=== PATIENT | female | born 1970 | race American Indian/Alaskan Native ===

== ENCOUNTER 2021-08-15 14:20 | Emergency (ER) | payer MEDICARE ==
[2021-08-15 15:15] VITALS: BP 104/61
[2021-08-15] MEDS ORDERED: DEXTROSE 10% *Hypoglycemia IV PRN (17:15)
[2021-08-15] MEDS ORDERED: SODIUM CHLORIDE 0.9% 500 ML 500 ML IV ONE (17:15)
--- NOTE | 2021-08-15 17:16 | Emergency Department Report ---
ED Syncope HPI - General Chief Complaint: Syncope Stated Complaint: Syncope Time Seen by Provider: 08/15/21 17:00 Source: patient Exam Limitations: no limitations - History of Present Illness Initial Comments: The patient is a pleasant and cooperative 51-year-old female who is currently visiting from [place]. The patient reports a history of coronary artery disease, with 2 drug-eluting stents, diabetes, hypertension, and currently takes Risperdal, prazosin, amitriptyline, Effient, metoprolol, metformin, Lipitor, and insulin. Patient states that the last time this happened to her, she had to be hospitalized in [place], and record coronary angiography and "a balloon in my heart." The patient also states that she believes that her blood sugars dropped on her, secondary to not eating this morning. The patient reports that she was in her usual state of health, not having any physical pain, when she was reaching for the door, and lost consciousness. She does not think that she hit her head. The patient denies physical pain, and reports that she ate after the event. She does not take glipizide, glimepiride, or sulfonylureas. She currently denies headache, neck pain, chest pain, abdominal pain, shortness of breath, hematemesis, bright red blood per rectum, reports having had only a 2-hour airplane trip from [place]. She states that she feels like she is in her usual state of health at this time, and denies new onset medications. She occasionally smokes cigarettes, but denies hard drugs. Timing/Prior Episodes: single episode today Precipitating Factors: Positive: other (Possibly not needed) Context: other (Standing and reaching for the door) Loss of Consciousness: no loss of consciousness Current Symptoms: back to normal - Related Data Allergies/Adverse Reactions: Allergies No Known Allergies Allergy (Verified 08/15/21 15:10) ED Review of Systems ROS: Stated complaint: LOW BLOOD SUGAR Other details as noted in HPI Comment: All other systems reviewed and negative Cardiovascular: syncope ED Past Medical Hx - Past Medical History Hx Hypertension: Yes Hx Diabetes: Yes - Surgical History Past Surgical History?: Yes Additional Surgical History: - Social History Smoking Status: Never Smoker Substance Use Type: None ED Physical Exam - General Limitations: No Limitations General appearance: alert, in no apparent distress, obese - Head Head exam: Present: atraumatic, normocephalic - Eye Eye exam: Present: normal appearance, EOMI. Absent: nystagmus - ENT ENT exam: Present: normal exam, normal orophraynx, mucous membranes moist, normal external ear exam - Neck Neck exam: Present: normal inspection, full ROM. Absent: tenderness, meningismus - Respiratory Respiratory exam: Present: normal lung sounds bilaterally. Absent: respiratory distress, wheezes, rales, rhonchi, stridor, decreased breath sounds - Cardiovascular Cardiovascular Exam: Present: regular rate, normal rhythm, normal heart sounds. Absent: bradycardia, tachycardia, irregular rhythm, systolic murmur, diastolic murmur, rubs, gallop - GI/Abdominal GI/Abdominal exam: Present: soft. Absent: distended, tenderness, guarding, rebound, rigid, pulsatile mass - Extremities Exam Extremities exam: Present: normal inspection, full ROM, other (2+ pulses noted in the bilateral upper and lower extremities. There is no palpable cord. negative Homans sign. Muscular compartments are soft. The pelvis is stable.). Absent: pedal edema, calf tenderness - Back Exam Back exam: Present: normal inspection, full ROM. Absent: tenderness, CVA tenderness (R), CVA tenderness (L), paraspinal tenderness, vertebral tenderness - Neurological Exam Neurological exam: Present: alert, oriented X3, normal gait, other (No facial droop. Tongue midline. Extraocular movements intact bilaterally. Facial sensation intact to light touch in V1, V2, V3 distribution bilaterally. 5 and a 5 strength in 4 extremities. Sensation intact to light touch in 4 extremities.). Absent: motor sensory deficit - Psychiatric Psychiatric exam: Present: normal affect, normal mood - Skin Skin exam: Present: warm, dry, intact, normal color. Absent: rash ED Course Vital Signs 08/15/21 15:11 Temperature 98.4 F Pulse Rate 85 Respiratory 20 Rate Blood Pressure 104/61 O2 Sat by Pulse 96 Oximetry - Reevaluation(s) Reevaluation #1: 08/15/21 17:36 Differential diagnosis, including not limited to: Orthostasis, vagal event, structural cardiac disease, acute coronary syndrome, pulmonary embolism, hypoglycemia Assessment and plan: 51-year-old female, with extensive cardiac history, moderate risk for major adverse cardiac event as per heart score, moderate risk for major adverse cardiac event as per [place] syncope rule, presents to the ER today with unprovoked syncope. She is not currently tachycardic, tachypneic or hypoxic, and she is currently PERC negative. I clinically doubt a pulmonary embolism at this time. Place patient on director of rehabilitative services, obtain appropriate laboratory studies, and serial EKGs. Obtain D-dimer given unprovoked syncope, although do not suspect pulmonary embolism. Extensive discussion had with patient's regarding clinical impression, and she understands that we will likely admit her to the medical service for high risk syncope. All questions answered. Reassess after laboratory studies have resulted. I specifically discussed the rationale behind admission, to evaluate for potentially dangerous and life-threatening conditions, such as pulmonary embolism, malignant arrhythmia, and acute coronary syndrome. Patient presents is awake, alert, oriented, sober, of sound mind, and exhibits decision-making c apacity. She is free from distracting injury 08/15/21 18:03 The patient left the emergency room without telling myself or any care members. Registration staff tell me that they saw the patient exit the building. Discharged as an AMA ED Medical Decision Making - Lab Data Vital Signs 08/15/21 15:11 Temperature 98.4 F Pulse Rate 85 Respiratory 20 Rate Blood Pressure 104/61 O2 Sat by Pulse 96 Oximetry - EKG Data -: EKG Interpreted by Me EKG shows normal: sinus rhythm Rate: normal - EKG Data When compared to previous EKG there are: previous EKG unavailable 08/15/21 17:35 The EKG is interpreted at 15: 18 Sinus rhythm, 78 bpm. Normal axis, normal P wave axis, incomplete right bundle branch block, left ventricular hypertrophy, nonspecific T wave abnormalities. This is an abnormal EKG. This is not a STEMI. There is no prior for comparison Critical care attestation.: If time is entered above; I have spent that time in minutes in the direct care of this critically ill patient, excluding procedure time. ED Disposition Clinical Impression: Abnormal EKG, Syncope, Coronary artery disease, Body mass index (BMI) 35 or more Disposition: 07 LEFT AGAINST MEDICAL ADVICE Is pt being admited?: No Does the pt Need Aspirin: No Condition: Undetermined Instructions: Syncope (ED) Referrals: PRIMARY CARE, [Primary Care Provider] - 3-5 Days
--- NOTE | 2021-08-16 10:16 | Electrocardiograph Report ---
[facility] Test Date: 2021-08-15 Test Time: 15:18:21 Pat Name: ELANA STEELE Department: Room: Gender: F Scarfer: MABEL : 1970 Requested By: PATRICIA FREGOSO Order Number: [id number] Reading MD: Evan Dye Measurements Intervals [place] Rate: 78 P: 17 AK: 136 QRS: 59 QRSD: 90 T: -43 QT: 384 QTc: 438 Interpretive Statements Sinus rhythm Nonspecific T abnormalities, diffuse leads No previous ECG available for comparison Electronically Signed On 08-16-2021 10:16:14 EDT by Evan Dye
== END 2021-08-15 18:57 | disposition left against medical advice (07) ==
LOC: ED 14:20
DX: R94.31 Abnormal electrocardiogram [ECG] [EKG] (principal); R55 Syncope and collapse; I25.10 Atherosclerotic heart disease of native coronary artery without angina pectoris; Z68.35 Body mass index [BMI] 35.0-35.9, adult; I10 Essential (primary) hypertension; E11.9 Type 2 diabetes mellitus without complications
CPT/HCPCS: 82962; 93005; 99282